=== PATIENT | male | born 1995 | race Caucasian/White ===

== ENCOUNTER 2024-12-17 20:12 | Emergency (ER) | payer OTHER, SELFPAY ==
[2024-12-17 20:21] VITALS: BP 159/110; PULSE 110; RESP 18; TEMP 37.3; O2SAT 98; BMI 42.2
--- NOTE | 2024-12-17 20:36 | CRLHL7_ITS ---
For Patients: As a result of the Century Cures Act, medical imaging exams and procedure reports are released immediately into your electronic medical record. You may view this report before your referring provider. If you have questions, please contact your health care provider. Indication: Abdominal pain. Technique: Abdomen 5 view. Comparison: None. Findings/Impression: Bowel: Bowel pattern is normal. Moderate colonic stool burden. Soft tissues: No sign of free air. No sign of soft tissue mass. No suspicious calcifications. Bones: Unremarkable for age. Dictated by Vadim Berger MD @ 12/17/2024 8:55:56 PM (Electronically Signed)
--- NOTE | 2024-12-17 21:20 | ED.ABDPAIN ---
HPI - Abdominal Pain General Date Seen: 12/17/24 Chief Complaint: Abdominal Pain Stated Complaint: constipation Time Seen by Provider: 12/17/24 20:24 Source: patient, RN notes reviewed and old records reviewed Mode of arrival: ambulatory Limitations: no limitations History of Present Illness HPI narrative: Patient is a very nice 29-year-old gentleman who presents here for evaluation of abdominal pain he has had the abdominal pain on off now for approximately 3 weeks, has had multiple workups done in [place], both in the clinic in ER. With a normal CT scan, normal right upper quadrant ultrasound. Normal laboratory work including liver function tests amylase lipase. Urinalysis is negative . Patient did at virtual GI visit, where they recommended MiraLax, as he feels constipated. Today comes in feeling that he has a bowel obstruction as he only has yellow clear fluid coming out of his anal region. He took MiraLax today are did the whole bowel prep. She says no blood, eating and drinking otherwise normally with no vomiting. No fevers or chills. Did take occasional ibuprofen early on but did not take it for a while. Denies significant alcohol use. No really a lot of caffeine noted. No history of previous abdominal surgery, MD elicited complaint: abdominal pain Pertinent past history: constipation Related Data Allergies Allergy/AdvReac Type Severity Reaction Status Date / Time No Known Drug Allergies Allergy Verified 12/17/24 20:26 Review of Systems Status of ROS Reports: 10 or more systems reviewed and unremarkable except as noted in History and below Exam Narrative: Exam Narrative: On examination he is in no apparent distress he is pleasant and alert I see him in room 3. Pupils are equal round reactive to light there is no scleral icterus redness is TMs are normal his oropharynx is normal chest is good air entry bilateral with no wheezing crackles noted his heart sounds are normal his abdomen is soft and obese there is absolutely no guarding in any of the areas, bowel sounds are normal, no hernias are noted. No CVA tenderness, moves all extremities independently and well. I was able to review multiple notes in [facility], from his recent within the last 2 weeks clinic visits and ER visit. Const: Vital Signs, click to edit/add: Vital Signs - 24 hr 12/17/24 20:21 Temperature 99.1 F Pulse Rate [Right Pulse Oximeter] 110 H Respiratory Rate 18 Blood Pressure [Le ft Upper Arm] 159/110 H Pulse Oximetry 98 Oxygen Delivery Me thod Room Air Documenting provider has reviewed patient's vital signs: yes Course Vital Signs Vital signs: Initial Vital Signs Temperature 99.1 F 12/17/24 20:21 Temperature Source Temporal Artery Scan 12/17/24 20:21 Pulse Rate 110 H 12/17/24 20:21 Pulse Rhythm Regular 12/17/24 20:21 Respiratory Rate 18 12/17/24 20:21 Blood Pressure 159/110 H 12/17/24 20:21 Blood Pressure Mean 126 H 12/17/24 20:21 Blood Pressure Position Supine 12/17/24 20:21 Pulse Oximetry 98 12/17/24 20:21 Oxygen Delivery Method Room Air 12/17/24 20:21 Vital Signs Temperature 99.1 F 12/17/24 20:21 Pulse Rate 110 H 12/17/24 20:21 Respiratory Rate 18 12/17/24 20:21 Blood Pressure 159/110 H 12/17/24 20:21 Pulse Oximetry 98 12/17/24 20:21 Oxygen Delivery Method Room Air 12/17/24 20:21 Temperature 99.1 F 12/17/24 20:21 Pulse Rate 110 H 12/17/24 20:21 Respiratory Rate 18 12/17/24 20:21 Blood Pressure 159/110 H 12/17/24 20:21 Pulse Oximetry 98 12/17/24 20:21 Oxygen Delivery Method Room Air 12/17/24 20:21 MDM - Abdominal Pain MDM Narrative Medical decision making narrative: During this evaluation of this patient I considered multiple differential diagnosis is which included the life-threatening such as appendicitis, aortic aneurysm, mesenteric ischemia, bowel perforation, volvulus, and bowel obstruction. Other differential diagnosis is include but are not limited to cholecystitis, pancreatitis, hepatitis, gastritis, GERD, diverticulitis, peptic ulcer disease, pyelonephritis/UTI, renal colic/stone, testicular torsion as well as other acute scrotal processes, inflammatory bowel disease, as well as other etiologies I think it is unlikely that this is biliary colic as he has a normal ultrasound normal CT and normal laboratory work. HIDA scan would be further workup for this but I do not think he needs this at least not rate now. This is more likely gastritis, she did get some relief using the GI cocktail when he was in the ER in [place]. I think a reasonable approach here, was to do x-ray, which showed a lot a gas and stool little bit of stool. Although this is also not the best test for this. It did definitely did not show any evidence of obstruction. We will put him on Prilosec 40 mg a day, for 30 days, I recommend that he follow up with primary care if ongoing signs symptoms we went over reasons he should come back to the ER. Avoidance of NSAIDs and alcohol is also suggested, possibility of this being irritable bowel syndrome is also did entertain. Medical Records Attestation: I reviewed the patient's medical records. Imaging Data Abdominal x-ray: Attestation: I have reviewed the pertinent imaging results. My impression: Gas no obstructive pattern. Little bit of stool. Radiologist's impression: [place] [address] Diagnostic Imaging Report Patient: Malcom Astudillo MR#: [id number] : 1995 Acct:[id number] Loc: ED Service Date: 12/17/[address]: Ordering Physician: Kevon Pruitt M.D. Date of Service: 12/17/24 Procedure(s): XR abdomen min 2V Accession Number(s): [id number] cc: Kevon Pruitt M.D.~ For Patients: As a result of the Cures Act, medical imaging exams and procedure reports are released immediately into your electronic medical record. You may view this report before your referring provider. If you have questions, please contact your health care provider. Indication: Abdominal pain. Technique: Abdomen 5 view. Comparison: None. Findings/Impression: Bowel: Bowel pattern is normal. Moderate colonic stool burden. Soft tissues: No sign of free air. No sign of soft tissue mass. No suspicious calcifications. Bones: Unremarkable for age. Dictated by Vadim Berger MD @ 12/17/2024 8:55:56 PM (Electronically Signed) Discharge Plan Discharge Clinical Impression: Abdominal pain, Gastritis Patient Disposition: Home, Self-Care Condition: Stable Instructions: Abdominal Pain (ED) Additional Instructions: Stop the MiraLax, buy Prilosec, 40 mg a day for 30 days, I found cheapest at [employer], it however is available at any the big box stores also. [place] diet, minimize alcohol no use of NSAIDs. Follow up here if ongoing pain becomes severe, throwing up blood passing blood. Activity Level: Light activity Follow Up/Referrals: Provider,Not a Local [Primary Care Provider, Family Practice] Stand Alone Forms: [facility] Info Instructions
== END 2024-12-17 21:25 | disposition home or self-care (01) ==
PROVIDERS: Emergency Provider Family Medicine
DX: K29.70 Gastritis, unspecified, without bleeding (principal)
CPT/HCPCS: 74019; 99283; 99284